=== PATIENT | female | born 2000 | race African-American/Black ===

== ENCOUNTER 2020-02-22 16:20 | Emergency (ER) | payer SELFPAY ==
[~2020-02-22] VITALS: Ht 152.4 cm; Wt 48.0 kg
[2020-02-22] MEDS ORDERED: KETOROLAC 60MG/2ML VIAL IM STA (18:14)
[2020-02-22] MEDS ORDERED: PENICILLIN G BENZATHINE 1,200,000 UNITS/2ML SYR IM ONE (18:15)
[2020-02-22 19:45] VITALS: BP 119/72
== END 2020-02-22 19:46 | disposition home or self-care (01) ==
LOC: ER 16:20
DX: J03.90 Acute tonsillitis, unspecified (principal)
CPT/HCPCS: 81025; 87070; 87430; 93005; 96372; 99284; J0561; J1885

== ENCOUNTER 2021-12-29 12:02 | Emergency (ER) | payer MEDICAID ==
[~2021-12-29] VITALS: Ht 157.5 cm; Wt 50.0 kg
[2021-12-29 12:17] VITALS: BP 134/83
[2021-12-29] MEDS ORDERED: ACETAMINOPHEN 325MG TABLET PO ONE (14:45)
[2021-12-29] MEDS ORDERED: IBUP-2029 MT (15:30)
== END 2021-12-29 15:46 | disposition home or self-care (01) ==
LOC: ER 12:02
DX: M25.531 Pain in right wrist (principal)
CPT/HCPCS: 29125; 73110; 81025; 99283

== ENCOUNTER 2022-01-05 15:15 | Emergency (ER) | payer MEDICAID ==
[~2022-01-05] VITALS: Ht 149.9 cm; Wt 61.0 kg
[~2022-01-05 15:15] MED LIST: IBUP-2029 MT
[2022-01-05 15:22] VITALS: BP 127/82
[2022-01-05] MEDS ORDERED: ONDANSETRON 4MG ODT PO ONE (17:30)
[2022-01-05 17:47] LABS: *AMPHETAMINES SCREEN URINE NEGATIVE (NEGATIVE); *BARBITURATES SCREEN URINE NEGATIVE (NEGATIVE); *BENZODIAZEPINES SCREEN URINE NEGATIVE (NEGATIVE); *COCAINE SCREEN URINE NEGATIVE (NEGATIVE); CANNABINOID URINE SCREEN NEGATIVE (NEGATIVE); METHADONE URINE SCREEN NEGATIVE (NEGATIVE); OPIATES URINE SCREEN NEGATIVE (NEGATIVE); PHENCYCLIDINE URINE SCREEN NEGATIVE (NEGATIVE)
[2022-01-05] MEDS ORDERED: ONDA4FIL5 PO (18:05)
[2022-01-05] MEDS ORDERED: LORAZEPAM 1MG TABLET PO ONE (18:15)
== END 2022-01-05 18:43 | disposition home or self-care (01) ==
LOC: ER 15:15
DX: F10.10 Alcohol abuse, uncomplicated (principal); F41.9 Anxiety disorder, unspecified; Y90.9 Presence of alcohol in blood, level not specified
CPT/HCPCS: 80305; 81025; 99283; Q0162